=== PATIENT | female | born 1990 | race Caucasian/White ===

== ENCOUNTER 2018-07-15 15:20 | Emergency (ER) | payer SELFPAY ==
[~2018-07-15] VITALS: Ht 162.6 cm; Wt 51.7 kg
[2018-07-15 15:23] VITALS: BP 124/84
--- NOTE | 2018-07-15 15:25 | NUR ---
SEEN AND EXAMINED BY DR. TEE.
[2018-07-15] MEDS ORDERED: KETOROLAC TROMETHAMINE INJ 60 MG/2 ML VIAL IM ONE (15:30)
[2018-07-15] MEDS ORDERED: KETOROLAC TROMETHAMINE 15 MG/ML VIAL ONE (15:35)
[2018-07-15] MEDS ORDERED: KETOROLAC TROMETHAMINE INJ 30 MG/ML VIAL ONE (15:36)
--- NOTE | 2018-07-15 15:40 | NUR ---
PIE MAKER AT BEDSIDE FOR XRAY.
--- NOTE | 2018-07-15 16:29 | NUR ---
Patient discharged to home in stable condition. Written and verbal after care instructions given. Patient verbalizes understanding of instruction.
== END 2018-07-15 16:49 | disposition home or self-care (01) ==
LOC: ER 15:23
DX: S29.011A Strain of muscle and tendon of front wall of thorax, initial encounter (principal); S80.12XA Contusion of left lower leg, initial encounter; S80.11XA Contusion of right lower leg, initial encounter; Z91.040 Latex allergy status; Z60.2 Problems related to living alone; V49.59XA Passenger injured in collision with other motor vehicles in traffic accident, initial encounter; Y93.89 Activity, other specified; Y92.413 State road as the place of occurrence of the external cause; Y99.8 Other external cause status
CPT/HCPCS: 71045; 84703; 96372; 99284; J1885